=== PATIENT | male | born 1970 | race Caucasian/White ===

== ENCOUNTER 2021-03-27 15:41 | Inpatient (IN) | payer OTHER ==
[~2021-03-27] VITALS: Ht 185.4 cm; Wt 99.8 kg
[2021-03-27] MEDS ORDERED: HYZAAR 50-12.51 EACH (15:46)
[2021-03-31] MEDS ORDERED: PEPCID AC20 MG PO (18:16)
[2021-03-31] MEDS ORDERED: INTEGRA PLUS C1 EACH PO (18:16)
[2021-03-31] MEDS ORDERED: LOSARTAN POTASS50 MG PO (18:16)
== END 2021-03-31 18:33 | disposition home or self-care (01) | DRG 379 ==
LOC: ER 15:41 → SEC-K 21:59 → MEDJ 21:59
PROVIDERS: ADMIT Internal Medicine; ATTEND Internal Medicine
PROC: 30233N1 Transfusion of Nonautologous Red Blood Cells into Peripheral Vein, Percutaneous Approach (ICD-10-PCS; principal; 2021-03-28)
DX: K92.2 Gastrointestinal hemorrhage, unspecified (principal); I10 Essential (primary) hypertension; Z20.822 Contact with and (suspected) exposure to COVID-19; D64.9 Anemia, unspecified